=== PATIENT | female | born 2000 | race Caucasian/White ===

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

== ENCOUNTER 2021-06-03 22:16 | Emergency (ER) | payer OTHER, MEDICAID, SELFPAY ==
[2021-06-03 22:16] VITALS: BP 132/87; PULSE 106; RESP 16; TEMP 35.6; O2SAT 100; BMI 32.3
[2021-06-03] MEDS: 0.9% Normal Saline 1,000 ML 999 ML IV (22:51)
[2021-06-03] MEDS: Metoclopramide 10 MG/2 ML Vial IV (22:53)
[2021-06-03] MEDS: Ketorolac 30 MG/ML Syringe IV (22:53)
[2021-06-03] MEDS: DiphenhydrAMINE 50 MG/ML Syringe IV (22:56)
--- NOTE | 2021-06-03 23:28 | EX.ED.DYSGE1 ---
HPI History of Present Illness Chief Complaint: Headache Narrative Narrative: Patient is a 20-year-old female with past medical history of migraine headache. She states that earlier today she noticed she was developing a headache. She states there was no trauma or sick symptoms prior to the headache beginning. She states as time passed the headache gradually worsened. She states that she is sensitive to light and sound and nauseous with this headache and it feels similar nature to her previous migraine. She took medications at home that did not help and secondary to this comes in for evaluation. [facility] Medical History Blind left eye Migraine Home Medications NK 06/03/21 [History Last Taken Unknown] Allergy/AdvReac Type Severity Reaction Status Date / Time No Known Allergies Allergy Verified 06/03/21 22:18 Social History (Updated 11/18/20 @ 21:[address] Rob Alvarez MD) household members: significant other Smoking Status: Current every day smoker tobacco type: e-cigarettes Electronic Cigarette Use: with nicotine alcohol intake: never substance use type: does not use ROS ROS ED Constitutional Constitutional ED: Denies chills or fever(s) Eyes Eyes: Reports other Details: Positive photophobia ENT ENT ED: Denies sore throat Cardiovascular Cardiovascular: Denies chest pain Respiratory/Chest Respiratory/Chest: Denies cough or dyspnea Gastrointestinal Gastrointestinal: Reports nausea; Denies abdominal pain, diarrhea or vomiting Genitourinary Genitourinary ED: Denies dysuria Musculoskeletal Musculoskeletal: Denies myalgias or neck pain Integumentary Denies rash Neurologic Neurologic: Reports headache(s) EXAM Physical Exam Const Vital Signs: 06/03/21 22:16 Temperature 96.0 F L Temperature Source Temporal Pulse Rate 106 H Respiratory Rate 16 Blood Pressure 132/87 H Blood Pressure Mean 102 Pulse Ox 100 Oxygen Delivery Method Room Air Positive well nourished and well developed General Appearance ED: well developed HEENT Reports moist mucous membranes Eyes PERRL and EOMs intact bilaterally Neck supple Neck Narrative: No meningeal signs Resp normal respiratory effort and clear to auscultation bilaterally Cardio regular rate and regular rhythm GI normal to inspection, nondistended, normoactive bowel sounds, non-tender, non-distended and no masses Auscultation: normoactive bowel sounds Palpation: soft Extremity normal to inspection Neuro oriented x3 and CN's II-XII intact bilaterally Neuro Narrative: Cranial nerves II through XII are grossly intact there are no focal neurologic deficits. No pronator drift no dysmetria no truncal ataxia. NIH stroke scale score of 0 Sensorium / Orientation: alert Motor Exam: strength 5/5 throughout Psych mental status grossly normal Skin no rashes or lesions noted MDM MDM MDM Narrative Medical decision making narrative: Patient presented to the ER with a normal neurologic exam and no report or signs of injury or sick symptoms. Therefore I felt no need for imaging or laboratory studies. Patient was medicated with IV fluids Toradol Benadryl and Reglan. On reevaluation she is resting comfortably and her neuro exam remains normal. She does report improvement of her headache as well. Therefore at this time with improvement of symptoms and a persistently normal neurologic exam patient is safe for discharge Discharge Plan Triage Chief Complaint: Headache ED Provider: Jeremiah Chávez Dx/Rx/DC Orders Clinical Impression: Cephalgia Instructions: ED, Migraine (Classical) Prescriptions: No Action NK RF: 0 Primary Care Provider: Care Physician,No Primary Referrals: Bita Cohen MD [STAFF PHYSICIAN] - 1-2 Weeks Care Physician,No Primary [Primary Care Provider] - Disposition Disposition: Home, Self Care
[2021-06-03 23:52] VITALS: PULSE 94; RESP 17; O2SAT 99
== END 2021-06-03 23:54 | disposition home or self-care (01) ==
PROVIDERS: Emergency Provider Emergency Medicine
DX: R51.9 Headache, unspecified (principal); F17.290 Nicotine dependence, other tobacco product, uncomplicated
CPT/HCPCS: 96361; 96374; 96375; 99283; J7030; A4216

== ENCOUNTER 2024-03-30 13:14 | Emergency (ER) | payer OTHER, MEDICAID, SELFPAY ==
[2024-03-30 13:14] VITALS: BP 136/88; PULSE 90; RESP 20; TEMP 36.2; O2SAT 96; BMI 38.0
== END 2024-03-30 14:55 | disposition left against medical advice (07) ==
LOC: ED 15:02
DX: Z53.21 Procedure and treatment not carried out due to patient leaving prior to being seen by health care provider (principal)